=== PATIENT | female | born 1945 | race Two or more races ===

== ENCOUNTER 2019-09-28 10:29 | Emergency (ER) | payer OTHER, BC ==
[~2019-09-28] VITALS: Ht 147.3 cm; Wt 54.4 kg
[~2019-09-28 10:29] MED LIST: CRESTOR10 MG; ISTALOL2.5 ML; LUMIGAN2.5 ML; MICARDIS40 MG; NORVASC5 MG; SYNTHROID50 MCG
[2019-09-28] MEDS ORDERED: DICLOFENAC-MIS1 EAC1 PO (11:10)
[2019-09-28] MEDS ORDERED: LASIX20 MG PO (11:10)
[2019-09-28] MEDS ORDERED: VASOTEC10 MG PO (11:10)
[2019-09-28] MEDS ORDERED: RENA-VITE RX T1 EACH PO (11:11)
[2019-09-28] MEDS ORDERED: METHOTREXATE2.5 MG PO (11:11)
[2019-09-28] MEDS ORDERED: ZANAFLEX4 MG PO (11:11)
[2019-09-28] MEDS ORDERED: HORIZANT300 MG PO (11:11)
[2019-09-28] MEDS ORDERED: NEPHRONEX-SL T1 EACH PO (11:11)
[2019-09-28] MEDS ORDERED: FOLIC ACID0.8 M1 PO (11:12)
[2019-09-28] MEDS ORDERED: METHYLPREDNISOLO8 MG PO (11:12)
[2019-09-28] MEDS ORDERED: BIOTIN1000 MCG PO (11:12)
== END 2019-09-28 14:53 | disposition home or self-care (01) ==
LOC: ER 10:29
DX: K20.8 Other esophagitis (principal)

== ENCOUNTER 2021-09-05 18:57 | Emergency (ER) | payer OTHER, BC ==
[~2021-09-05] VITALS: Ht 147.3 cm; Wt 52.2 kg
[~2021-09-05 18:57] MED LIST changes: +BIOTIN1000 MCG PO; +DICLOFENAC-MIS1 EAC1 PO; +FOLIC ACID0.8 M1 PO; +HORIZANT300 MG PO; +LASIX20 MG PO; +METHOTREXATE2.5 MG PO; +METHYLPREDNISOLO8 MG PO; +NEPHRONEX-SL T1 EACH PO; +RENA-VITE RX T1 EACH PO; +VASOTEC10 MG PO; +ZANAFLEX4 MG PO
[2021-09-05] MEDS ORDERED: PREDNISONE20 MG PO (23:43)
== END 2021-09-05 23:52 | disposition home or self-care (01) ==
LOC: ER 18:57
DX: M10.9 Gout, unspecified (principal)

== ENCOUNTER 2021-09-19 11:07 | Emergency (ER) | payer OTHER, BC ==
[~2021-09-19] VITALS: Ht 121.9 cm; Wt 54.9 kg
[~2021-09-19 11:07] MED LIST changes: +PREDNISONE20 MG PO
[2021-09-19] MEDS ORDERED: DICY20TA PO (16:51)
[2021-09-19] MEDS ORDERED: PEPCID AC20 MG PO (16:51)
[2021-09-19] MEDS ORDERED: CIPRO500 MG PO (16:51)
[2021-09-19] MEDS ORDERED: METRONIDAZOLE500 MG PO (16:51)
== END 2021-09-19 18:14 | disposition home or self-care (01) ==
LOC: ER 11:07
DX: K57.32 Diverticulitis of large intestine without perforation or abscess without bleeding (principal); K59.09 Other constipation; M19.90 Unspecified osteoarthritis, unspecified site; E78.00 Pure hypercholesterolemia, unspecified; E03.9 Hypothyroidism, unspecified; I10 Essential (primary) hypertension